=== PATIENT | female | born 1965 | race Caucasian/White ===

== ENCOUNTER → 2018-07-03 12:56 | Day surgery (SDC) | payer BC ==
[~2018-07-03 12:56] MED LIST: Buffered Lidocaine 0.9% SYRIN* 5 ML/SYR SYRINGE INTRADERM ONE; Ketorolac INJ* 30 MG/ML 1 ML VIAL IV PRN; Lidocaine 2% PF * 5 ML VIAL ONE; Midazolam* 1 MG/ML 2 ML VIAL (2 MG) ONE; Morphine VIAL* 10 MG/ML 1 ML VIAL ONE; Naloxone* 0.4 MG/ML 1 ML VIAL IV PRN; Ondansetron INJ* 2 MG/ML VIAL IV PRN; Propofol* 10 MG/ML 20 ML BTL IV PUSH ONE; ceFAZolin 2 GM PREMIX in ORs 2 GM/50 ML BAG IVPB ONE; fentaNYL* 50 MCG/ML 2 ML VIAL (100 MCG VIAL) IV PRN; fentaNYL* 50 MCG/ML 2 ML VIAL (100 MCG VIAL) ONE
--- NOTE | 2018-07-03 15:36 | RAD ---
CPT II Codes: G9500 INDICATION: PowerPort placement. Fluoroscopic services provided for referring physician. 17.6 seconds of fluoroscopy time was used. Single spot image demonstrates PowerPort in place with tip in superior vena cava. IMPRESSION: PowerPort in place. Fluoroscopic services provided for referring physician.
--- NOTE | 2018-07-03 15:51 | RAD ---
Indication: Breast carcinoma. Power port placement. Comparison: June 24, 2018 PET/CT and July 03, 2018 fluoroscopic spot image. Technique: Upright AP 1544 hours Report: Tip of RIGHT chest port is at the level of the RIGHT atrium. Negative for pneumothorax or pleural effusions. Clear lungs. The heart, pulmonary vasculature, and mediastinal contours are unremarkable. LEFT breast tissue varnish maker helper noted. IMPRESSION: #. Negative for pneumothorax post RIGHT chest port placement.
[2018-07-03 16:03] VITALS: BP 142/84
--- NOTE | 2018-07-04 07:53 | OP ---
CC: Eleni Zhao MD; Mauro Zuleta MD * DATE OF OPERATION: 07/03/18 - [facility] DATE OF : 67 SURGEON: Carlin Carrasco MD. SENIOR PROCUREMENT SPECIALIST: None. ANESTHESIOLOGIST: Dr. Cerda. ANESTHESIA: Local MAC. PRE-OP DIAGNOSIS: Left breast carcinoma. POST-OP DIAGNOSIS: Left breast carcinoma. OPERATIVE PROCEDURE: Placement of tunneled central venous catheter with port. ESTIMATED BLOOD LOSS: Minimal. IV FLUIDS: Crystalloid. SPECIMENS: None. DRAINS: None. COMPLICATIONS: None. COUNTS: Instrument, needle, sponge counts correct. DESCRIPTION OF PROCEDURE: The patient was brought to the operating room and placed on the table supine. Sequential compression devices were placed on both lower extremities. Intravenous sedation was administered. She was prepped and draped in sterile fashion and a time-out was performed. Local anesthetic was infiltrated into the skin and soft tissue for a right subclavian approach. The right subclavian vein was accessed on first pass with the needle and the guidewire was positioned in the superior vena cava and confirmed with fluoroscopy. Additional anesthetic was infiltrated for the subcutaneous pocket in the right upper chest. The skin was incised with a scalpel. The subcutaneous tissues were divided with cautery and a pocket was created. An 8-Belgian PowerPort catheter was back tunneled from the counter incision made at the guidewire site to the area of the pocket. The peel-away sheath and dilator were then advanced over the guidewire into the superior vena cava under fluoroscopy. The dilator and wire were removed and the catheter was advanced into the superior vena cava with the tip positioned at the atriocaval junction. The catheter was then cut to an appropriate length and connected to the PowerPort, which was accessed and it jael and flushed easily. The port was placed into the pocket, and secured with a single 2-0 Prolene suture. The pocket was closed in two layers with 3-0 Vicryl for the subcutaneous tissue, 5-0 Vicryl for the skin. The port was again accessed and flushed with heparinized saline. Steri-Strips and Tegaderm dressings were applied. The patient tolerated this well and was transferred to Recovery in stable condition. [id number]/[facility] #: [id number] [facility]
== END | disposition home or self-care (01) ==
LOC: OR 12:56
PROVIDERS: ATTEND Surgery
DX: C50.912 Malignant neoplasm of unspecified site of left female breast (principal); Z68.29 Body mass index [BMI] 29.0-29.9, adult
CPT/HCPCS: 71045; 76000; C1788; J0690; J1642; J2250; J2270; J2704; J3010

== ENCOUNTER 2019-10-07 12:10 | Emergency (ER) | payer BC ==
--- OUTSIDE RECORDS SUMMARY | 2019-10-07 12:19 | XMS REPORT | Summary of Care ---
:1965 Author Organization [facility] Address [address] [place] [address] Care Team Providers Name Role Phone Eleni Zhao Primary Care Provider Reason for Visit Reason Comments Surgical Followup Encounter Details Date Type Department Care Team Description 09/13/2019 Office Visit [facility] Yesy Reeves, Follow-up examination Surgery PA-C following [address] (Primary [address]x) [place] [phone] [place] [address] Allergies No Known Allergiesdocumented as of this encounter (statuses as of 09/13/2019) Medications Medication Sig Dispensed Refills Start Date End Date Status fexofenadine (ALEX) Take 1 Tab by 30 0 01/06/2008 Active 180 mg Oral mouth DAILY. TabIndications: Allergic rhinitis, cause unspecified Vitamin D, Take by mouth. 0 Active Ergocalciferol, 2000 units Oral Cap Tamoxifen Citrate 20 Take by mouth 0 Active MG Oral Tab DAILY. OXYcodone-acetaminophe Take 1 Tab by 20 Tab 0 09/07/2019 Active n (PERCOCET) 5-325 MG mouth EVERY Oral Tab EIGHT HOURS NEEDED (pain). Max Daily Amount: 3 Tabs. Clindamycin HCl 300 MG Take 2 Caps by 42 Cap 0 09/07/2019 09/14/2019 Active Oral Cap mouth THREE TIMES DAILY WITH MEALS for 7 days. 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 Andreia Azevedo Primary Care Provider: Katarzyna Schwarz Oncologist: Initial Evaluation: 08/17/2014 Colonoscopy - One 15 mm polyp at the hepatic flexure - tattooed. Pathology: Hyperplastic One 15 mm polyp in the transverse colon. Pathology: Hyperplastic One 7 mm polyp in the sigmoid colon. Pathology: Harmatoma Partially obstructing recto-sigmoid mass. Pathology: Tubulovillous adenoma w/ high-grade dysplasia 08/23/2014 CT scan (chest/abd/pelvis) - Intraluminal polyp measuring 2.7 cm located w/i the rectosigmoid colon No evidence of metastatic disease in the chest/abd/pelvis Lab Results Lab Results Value Date/Time CEA 0.8 08/23/2014 1031 08/31/2014 Repeat colonoscopy - One 12 mm polyp in the ascending colon. Pathology: sessile serrated polyp (serrated adenoma), negative for dysplasia. One 10 mm polyp in the descending colon - tattooed. Pathology: sessile serrated polyp (serrated adenoma), negative for dysplasia. Partially obstructing tumor in the sigmoid colon. Removal was not done. Injected. Neoadjuvant Therapy: Not indicated Chemo: Radiation: 09/02/2014 Surgical Management: Robotic sigmoidectomy, LAR, incidental appendectomy Pathology: Rectum:Pedunculated TVA with foci of moderate to severe epithelial dysplasia. Sigmoid: hyperplastic polyp Appendix: no abnomalities noted Lymph node status: 0/17 containing metastatic disease Margins: clear of neoplasm Complications: Adjuvant Therapy: Multidisciplinary Colorectal Conference: 09/12/2014 Repeat colonoscopy in one year Follow -up evaluation: 09/06/2015 Colonoscopy - Internal hemorrhoids. Transverse colon polyp measuring 7 mm Pathology: hyperplastic Anastomosis polyp measuring 20 mm Pathology: edematous mucosa - [facility] Polypoid mass measuring 3 cm located at the anastomosis (20 cm from anal verge ) Pathology:TVA w/o dysplasia 06/27/16 - Colonoscopy - 2 tubulovillous adenoma - 9 and 14 mm Sprain of thoracic region 05/07/2013 Sprain of neck 05/07/2013 SEASONAL ALLERGIES- SPRING 01/05/2008 documented as of this encounter (statuses as of 09/13/2019) Resolved Problems Problem Noted Date Resolved Date Colon cancer 08/17/2014 08/23/2014 Overview: Initial Presentation: Rectal bleeding, Change in bowel habits Referring Provider: Dr. Andreia Azevedo Primary Care Provider: Reymundo Boyd Oncologist: Initial Evaluation: 08/17/2014 Colonoscopy - Hepatic flexure polyp measuring 1.5 cm (carpet-like). Tattooed Pathology: pending Transverse polyp measuring 1.5 cm. Pathology: pending Sigmoid colon polyp measuring 7 mm. Pathology: pending Rectosigmoid mass measuring 2.1 cm - partially obstructing. Pathology: pending CT scan (chest/abd/pelvis) - pending PET scan - CEA: pending Neoadjuvant Therapy: Chemo: Radiation: Surgical Management: Pathology: Lymph node status: Margins: Complications: Adjuvant Therapy: Multidisciplinary Colorectal Conference: Follow -up evaluation: Three month follow -up: CEA: Six month follow-up: CEA: 12 month follow-up: Surveillance colonoscopy - CT scan - CEA: documented as of this encounter (statuses as of 09/13/2019) Immunizations Name Administration Dates Next Due TDAP Vaccine 10/23/2016 documented as of this encounter Social History Tobacco Use Types Packs/Day Years Used Date Never Smoker Smokeless Tobacco: Never Used Alcohol Use Drinks/Week oz/Week Comments Yes moderate Sex Assigned at Date Recorded Not on file Job Start Date Occupation Industry Not on file Not on file Not on file Travel History Travel Start Travel End No recent travel history available. documented as of this encounter Last Filed Vital Signs Not on filedocumented in this encounter Progress Notes Yesy Reeves PA-C - 09/13/2019 2:00 PM ESTMrsBakari Rocha presents with her today postop day 6 from left breast tissue barometers calibrator exchange for silicone implants and right breast reduction for symmetry as well as bilateral fat grafting. She denies any sweats, nausea, vomiting, diarrhea, shortness of breath, claudication since surgery.She states she has been having some chills and low- grade fevers. The highest fever was 101.3 Fahrenheit. Today temperature is 99.0 F. She is taking her antibiotics as recommended and having minimal pain after surgery. She is having some tightness secondary to the surgical bra around the lower band of the bra. Evaluation of abdomen and breast showing minimal ecchymosis of the lower abdomen following fat transfer. Right breast having some ecchymosis and minimal edema with no signs of tissue breakdown. Left breast has some erythema surrounding incision site and this is likely secondary to the amount of workthat was required in this area as well as lowering the IMF and history of radiation to the site. Minimal edema of left breast. Dr. Gan came in to evaluate the patient as well. He demarcated the area of erythema on the left IMF with marker and also demarcated areas on the skin of when to call and when to just come in. Encourage patient to do no heavy lifting or strenuous activity. Try to avoid public places for an additional week. Continue antibiotic as recommended. If you have any questions or concerns do not hesitate to make a sooner follow-up visit with myself. New surgical bra was given to patient with a larger size. If she would like to find a better fitting support bra with no underwire that would be okay with us. Okay to shower and gently wash all incisions with soap and fingers rinse then pat dry then apply dry gauze and abdominal binder back on. Please do not hesitate to call with any questions or concerns. Some supplies were given at today's visit. Follow-up Friday. Ernst Duvaltronically signed by Yesy Reeves PA-C at 09/13/2019 3:29 PM ESTdocumented in this encounter Plan of Treatment Date Type Specialty Care Team Description 09/17/2019 Office Visit Plastic Surgery Yesy Reeves PA-C [address] [place] [address] Health Maintenance Due Date Last Done Comments DEPRESSION SCREENING 1978 ZOSTER IMMUNIZATION SERIES 2016 (1 of 2) Colonoscopy 06/27/2017 06/27/2016, 05/23/2016 (Postponed), 03/27/2016, Additional history exists PAP SMEAR 07/13/2017 07/13/2014, 07/13/2014, 11/22/2004 MAMMOGRAM (SCREENING) 04/20/2019 04/20/2018, 04/06/2018, 09/26/2014, Additional history exists INFLUENZA VACCINE (#1) 2019 DIABETES SCREENING 05/18/2019 05/18/2018, 10/23/2016, 09/04/2014, Additional history exists LIPID DISORDER SCREENING 07/13/2019 07/13/2014 DTaP/Tdap/Td Vaccines (2 - 10/23/2026 10/23/2016 Tdap) HEPATITIS A IMMUNIZATION Aged Out No longer eligible SERIES based on patient's age to complete this topic HPV IMMUNIZATION SERIES Aged Out No longer eligible based on patient's age to complete this topic MENINGOCOCCAL VACCINE IMM Aged Out No longer eligible based on patient's age to complete this topic PNEUMOCOCCAL 0-64 YRS Aged Out No longer eligible based on patient's age to complete this topic documented as of this encounter Implants Implanted Type Area Fairground Operator Device Shelf Model / Identifier Expiration Date Serial / Lot Alloderm, 8x16 Rtu Thick - [id number] Left: LIFECE [id number] 12/05/2019 [id number] / Implanted: Qty: 1 on 06/05/2018 by Tyshawn Gan DO at [facility] Breast / [id number] Natrella Inspira Breast Implant Left: Allergan 04/23/2024 [id number] / Implanted: Qty: 1 on 09/07/2019 at [facility] Breast [id number] / [id number] Natrelle Inspira Breast Implant Right: Allergan 05/23/2024 SRL-200 / Implanted: Qty: 1 on 09/07/2019 at [facility] Breast [id number] / [id number] documented as of this encounter Results Not on filedocumented in this encounter Visit Diagnoses Diagnosis Follow-up examination following surgery Follow-up examination, following unspecified surgery documented in this encounter Guarantor Name Account Type Relation to Date of Phone Billing Patient Address Anitha Rocha Personal/Family 1965 [address] ([address]) [address] [phone] [place], [place] (Work) [address] documented as of this encounter
--- OUTSIDE RECORDS SUMMARY | 2019-10-07 12:19 | XMS REPORT | Summary of Care ---
:1965 Author Organization [facility] Address [address] [facility] [place] [address] Care Team Providers Name Role Phone Eleni Zhao Primary Care Provider Reason for Visit Reason Comments Surgical Followup 53 yr old female presents today for 2 week recheck, s/p revision left reconstructed breast with exchange of tissue computer systems security analyst for permanent silicone implant,capsulotomy and capsulorrhaphy left reconstructed breast, right symmetrizing breast lift with placement of implant,scar revision bilateral breasts, autologous fat grafting bilateral breasts 09/07/19 Wound Check left breast Encounter Details Date Type Department Care Team Description 10/06/2019 Office Visit [facility] Yesy Reeves, Follow-up examination Surgery PA-C following [address] (Primary [address]x) [place] [phone] [place] [address] Allergies No Known Allergiesdocumented as of this encounter (statuses as of 10/06/2019) Medications Medication Sig Dispensed Refills Start Date End Date Status fexofenadine (ALEX) Take 1 Tab by 30 0 01/06/2008 Active 180 mg Oral mouth DAILY. TabIndications: Allergic rhinitis, cause unspecified Vitamin D, Take by mouth. 0 Active Ergocalciferol, 2000 units Oral Cap Tamoxifen Citrate 20 MG Take by mouth 0 Active Oral Tab DAILY. 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 Kali Randall) Polypoid mass measuring 3 cm located at the anastomosis (20 cm from anal verge ) Pathology:TVA w/o dysplasia 06/27/16 - Colonoscopy - 2 tubulovillous adenoma - 9 and 14 mm Sprain of thoracic region 05/07/2013 Sprain of neck 05/07/2013 SEASONAL ALLERGIES- SPRING 01/05/2008 documented as of this encounter (statuses as of 10/06/2019) Resolved Problems Problem Noted Date Resolved Date [...] as of this encounter (statuses as of 10/06/2019) Immunizations Name Administration Dates Next Due TDAP [...] encounter Progress Notes Yesy Reeves PA-C - 10/06/2019 3:40 PM ESTMs. Rocha presents with her today 4 weeks status post left breast revision reconstruction with implant exchange and right breast reduction for symmetry as well as bilateral fat grafting in the OR with Dr. Gan. She denies any difficulty with the healing process. Patient states that the left lower IMF is improving. She has started walking again and is feeling well. She is interested inabdominoplasty or laser liposuction in the future and if she chooses to pursue that she should make a follow-up visit for cosmetic consultation with Dr. Gan. She is not yet considered if she would like to do 3D nipple reconstruction or 3D nipple tattoo. If she would like 3D nipple tattoo she should call and make that follow -up visit I will fill out the procedure sheet. Please do not hesitate to call with any questions or concerns. Encouraging left breast massage. Wash her left breast daily with a soapy washcloth rinse and pat dry then apply thin sheen of bacitracin ointment and a dry gauze. If she notes any drainage from the site she should call for a sooner follow-up visit. Wear good support bra at all times unless showering. Slowly reintroduce previous activities. If you notice any increase in redness, swelling, pain ofthe left breast please do not hesitate to give us a call. Ernst Duvaltronically signed by Yesy Reeves PA-C at 10/06/2019 4:06 PM ESTdocumented in this encounter Plan of Treatment Health Maintenance Due Date Last Done Comments [...] of this encounter Implants Implanted Type Area Live In Housekeeper Device Shelf Model / Identifier Expiration Date Serial / Lot Eliza, 8x16 Rtu Thick - [id number] Left: LIFECE [id number] 12/05/2019 [id number] / Implanted: Qty: 1 on 06/05/2018 by Tyshawn Gan DO at [facility] Breast / [id number] Natrella Inspira Breast Implant Left: Allergan 04/23/2024 SRF-605 / Implanted: Qty: 1 on 09/07/2019 at [facility] Breast [id number] / [id number] Natrelle Inspira Breast Implant Right: Allergan 05/23/2024 SRL-200 / Implanted: Qty: 1 on 09/07/2019 at [facility] Breast [id number] / [id number] documented as of this encounter Results Not on filedocumented in this encounter Visit Diagnoses Diagnosis Follow-up examination following surgery Follow-up examination, following unspecified surgery documented in this encounter (Home) [address] [phone] [place], [place] (Work) [address] documented as of this encounter
--- OUTSIDE RECORDS SUMMARY | 2019-10-07 12:19 | XMS REPORT | Summary of Care ---
:1965 Author Organization [facility] Address [address] [facility] [place] [address] Care Team Providers Name Role Phone Eleni Zaho Primary Care Provider Reason for Visit Reason Comments Surgical Followup 53 yr old female presents today for 4 day recheck, s/p 1 revision left reconstructed breast with exchange of tissue instructional services specialist for permanent silicone implant #2 capsulotomy and capsulorrhaphy left reconstructed breast #3 right symmetrizing breast lift with placement of implant #4 scar revision bilateral breasts #5 autologous fat grafting bilateral breasts 09/07/19 Breast Problem recheck sparkle breasts Encounter Details Date Type Department Care Team Description 09/17/2019 Office Visit [facility], Follow-up examination Surgery PA-C following [address] (Primary [address]x) [place] [address] [place] [address] Allergies No Known Allergiesdocumented as of this encounter (statuses as of 09/17/2019) Medications Medication Sig Dispensed Refills Start Date End Date Status fexofenadine Take 1 Tab 30 0 01/06/2008 Active (ALEX) 180 mg by mouth Oral DAILY. TabIndications: Allergic rhinitis, cause unspecified Vitamin D, Take by 0 Active Ergocalciferol, mouth. 2000 units Oral Cap Tamoxifen Citrate Take by 0 Active 20 MG Oral Tab mouth DAILY. OXYcodone-acetamin Take 1 Tab 20 Tab 0 09/07/2019 01/17/202 Discontinued ophen (PERCOCET) by mouth 0 (Therapy 5-325 MG Oral Tab EVERY EIGHT Completed) HOURS NEEDED (pain). Max Daily Amount: 3 Tabs. 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 Kali Randall) Polypoid mass measuring 3 cm located at the anastomosis (20 cm from anal verge ) Pathology:TVA w/o dysplasia 06/27/16 - Colonoscopy - 2 tubulovillous adenoma - 9 and 14 mm Sprain of thoracic region 05/07/2013 Sprain of neck 05/07/2013 SEASONAL ALLERGIES- SPRING 01/05/2008 documented as of this encounter (statuses as of 09/17/2019) Resolved Problems Problem Noted Date Resolved Date [...] as of this encounter (statuses as of 09/17/2019) Immunizations Name Administration Dates Next Due TDAP [...] of this encounter Last Filed Vital Signs Vital Sign Reading Time Taken Comments Blood Pressure - - Pulse - - Temperature 37.2 09/17/2019 2:48 PM EST C (98.9 F) Respiratory Rate - - Oxygen Saturation - - Inhaled Oxygen Concentration - - Weight - - Height - - Body Mass Index - - documented in this encounter Progress Notes Yesy Reeves PA-C - 09/17/2019 3:00 PM ESTMrsBakari Rocha presents with her today postop day 10 from left breast tissue instructional services specialist exchange for silicone implants and right breast reduction for symmetry as well as bilateral fat grafting. She states she is feeling significantly better since last visit. She has not noted any fevers. Shehas no pain on the right and no occasional discomfort on the lower left side. She feels as though her abdomen is less swollen as well. She states that the left side discomfort is improved significantly. She stopped using the surgical bra and started using a larger bra that sheremoved with the underwire from. Right breast with residual edema and ecchymosis which is improving since last visit. Left breast erythema is decreasing and there is more softness to the skin. You see wrinkling of the skin on the left side. Incision site has a small area of what appears to be superficial necrosis. I encouraged the patient to wear good supportive bra at all times. No heavy lifting or strenuous activity. Follow-up in approximately 1 week at a time when Dr. Aguirre is available. If she notes a sudden gush of fluid on either side of the reduction or reconstruction to keep it clean and apply a dry gauze and to call for sooner follow-up. Please do not hesitate to call with any questions or concerns or if you note any increase in redness, swelling, pain, drainage. Leaving all princess and sutures in place until next visit. Suture trimmed at umbilicus. Ernst Duvaltronically signed by Yesy Reeves PA-C at 09/17/2019 4:01 PM ESTdocumented in this encounter Plan of Treatment Date Type Specialty Care Team Description 09/22/2019 Office Visit Plastic Surgery Yesy Reeves PA-C [...] of this encounter Implants Implanted Type Area Phlebotomist Prn Device Shelf Model / Identifier Expiration Date Serial / Lot Alloderm, 8x16 Rtu Thick - [id number] Left: LIFECE [id number] 12/05/2019 [id number] / Implanted: Qty: 1 on 06/05/2018 by Tyshawn Gan DO at [facility] Breast / [id number] Natrella Inspira Breast Implant Left: Allergan 04/23/2024 SRF-605 / Implanted: Qty: 1 on 09/07/2019 at [facility] Breast [id number] / [id number] Natrelle Inspira Breast Implant Right: Allergan 05/23/2024 SRL-200 / Implanted: Qty: 1 on 09/07/2019 at [facility] Breast [id number] / [id number] documented as of this encounter Results Not on filedocumented in this encounter Visit Diagnoses Diagnosis Follow-up examination following surgery Follow-up examination, following unspecified surgery documented in this encounter (Home) [address] [phone] [place], [place] (Work) [address] documented as of this encounter
--- OUTSIDE RECORDS SUMMARY | 2019-10-07 12:19 | XMS REPORT | Summary of Care ---
:1965 Author Organization [facility] Address [address] [place] [address] Care Team Providers Name Role Phone Eleni Zhao Primary Care Provider Reason for Visit Reason Comments Follow Up Patient is 53 yr old female presents s/p 09/07/19 left licensed physical therapist assistant exchange for silicone implant. Patient has no complaints today Encounter Details Date Type Department Care Team Description 09/22/2019 Office Visit [facility] Yesy Reeves, Follow-up examination Surgery PA-C following surgery [address] (Primary Dx) [place] [id number] [place] [address] Allergies No Known Allergiesdocumented as of this encounter (statuses as of 09/22/2019) Medications Medication Sig Dispensed Refills Start Date End Date Status fexofenadine (ALEX) Take 1 Tab by 30 0 01/06/2008 Active 180 mg Oral mouth DAILY. TabIndications: Allergic rhinitis, cause unspecified Vitamin D, Take by mouth. 0 Active Ergocalciferol, 2000 units Oral Cap Tamoxifen Citrate 20 MG Take by mouth 0 Active Oral Tab DAILY. 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 (Dr. Kali Randall) Polypoid mass measuring 3 cm located at the anastomosis (20 cm from anal verge ) Pathology:TVA w/o dysplasia 06/27/16 - Colonoscopy - 2 tubulovillous adenoma - 9 and 14 mm Sprain of thoracic region 05/07/2013 Sprain of neck 05/07/2013 SEASONAL ALLERGIES- SPRING 01/05/2008 documented as of this encounter (statuses as of 09/22/2019) Resolved Problems Problem Noted Date Resolved Date [...] as of this encounter (statuses as of 09/22/2019) Immunizations Name Administration Dates Next Due TDAP [...] Pressure - - Pulse - - Temperature - - Respiratory Rate - - Oxygen Saturation - - Inhaled Oxygen Concentration - - Weight 79.4 kg (175 lb) 09/22/2019 3:18 PM EST Height 160 cm (5' 3") 09/22/2019 3:18 PM EST Body Mass Index 31 09/22/2019 3:18 PM EST documented in this encounter Progress Notes Yesy Reeves PA-C - 09/22/2019 3:30 PM ESTMs. Rocha presents with her daughter today for a two-week follow-up from right breast reduction for symmetry and left breast tissue licensed physical therapist assistant exchange for implants as well as fat grafting. She is pleased with the results thus far. Patient states she went down 2 pant sizes. She denies any fevers, chills, sweats. States she continues to feel a bit foggy mentally and would like to start going out more. Right breast is healing beautifully. Left breast continues to be slightly edematous with some hyperemia however does not appear infected. Left IMF has some tissue necrosis just along the incision line located in the medial aspect. Dr. Gan came in to evaluate the patient as well. He is very pleased with the results. Recommending to remove remaining sutures and princess from right breast. Trim left IMF's suture. No heavy lifting or strenuous activity. Is okay to go out and do some light walking. Follow-up in 9 to 10 days to recheck. If you know any increase in redness, swelling, pain please donot hesitate to give us a call. Wear good support bra at all times unless showering. Dry gauze to left IMF. Yesy Reeves PA-C documented in this encounter Plan of Treatment Date Type Specialty Care Team Description 10/06/2019 Office Visit Plastic Surgery Yesy Reeves PA-C [...] of this encounter Implants Implanted Type Area Business Applications Analyst Device Shelf Model / Identifier Expiration Date Serial / Lot Eliza, 8x16 Rtu Thick - [id number] Left: LIFECE [id number] 12/05/2019 [id number] / Implanted: Qty: 1 on 06/05/2018 by Tyshawn Gan DO at [facility] Breast / [id number] Natrella Inspira Breast Implant Left: Allergan 04/23/2024 [id number] / Implanted: Qty: 1 on 09/07/2019 at [facility] Breast [id number] / [id number] Natrelle Inspira Breast Implant Right: Allergan 05/23/2024 SRL-200 / Implanted: Qty: 1 on 09/07/2019 at [facility] Breast [id number] / [id number] documented as of this encounter Results Not on filedocumented in this encounter Visit Diagnoses Diagnosis Follow-up examination following surgery Follow-up examination, following unspecified surgery documented in this encounter (Home) [address] [phone] [place], [place] (Work) [id number] documented as of this encounter
--- OUTSIDE RECORDS SUMMARY | 2019-10-07 12:20 | XMS REPORT | Summary of Care ---
:1965 Author Organization [facility] Address [address] [place] [address] Care Team Providers Name Role Phone Eleni Zhao Primary Care Provider Reason for Visit Auth/Cert Status Reason Specialty Diagnoses / Procedures Referred By Contact Referred To Contact Diagnoses Personal history of malignant neoplasm of breast Procedures IA REVISE BREAST RECONSTRUCTION IA REMV TISSUE FOR GRAFT OTHR IA [id number] GRAFT IA REMV TISSUE FOR GRAFT OTHR IA DELAY BREAST PROS AFTER BREAST SURG IA ENLARGE BREAST WITH IMPLANT IA REDUCTION OF LARGE BREAST IA IMPLNT BIO IMPLNT FOR SOFT TISSUE REINFORCEMENT IA REMOVAL OF IMPLANT MATERIAL left home improvement advisor exchange for silicone implant, alloderm pocket, PORSPER drains. right reduction with silicone implant and b/l fat grafting FAT GRAFTING Encounter Details Date Type Department Care Team Description 09/07/2019 Hospital Encounter [facility] RECOVERY Tyshawn Gan Short Procedure [address], [place] [address] [address] [phone] [place] [address] [phone] Allergies No Known Allergiesdocumented as of this encounter (statuses as of 09/08/2019) Medications Medication Sig Dispensed Refills Start Date [...] as of this encounter (statuses as of 09/08/2019) Active Problems Problem Noted Date Personal history of breast cancer 08/27/2019 Personal history of malignant neoplasm of breast 08/27/2019 Overview: Added automatically from request for surgery [id number] Carcinoma of overlapping sites of left breast in female, estrogen receptor positive Overview: Added automatically from request for surgery [id number] 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 Kali Randall) Polypoid mass measuring 3 cm located at the anastomosis (20 cm from anal verge ) Pathology:TVA w/o dysplasia 06/27/16 - Colonoscopy - 2 tubulovillous adenoma - 9 and 14 mm Sprain of thoracic region 05/07/2013 Sprain of neck 05/07/2013 SEASONAL ALLERGIES- SPRING 01/05/2008 documented as of this encounter (statuses as of 09/08/2019) Resolved Problems Problem Noted Date Resolved Date [...] as of this encounter (statuses as of 09/08/2019) Immunizations Name Administration Dates Next Due TDAP [...] Sign Reading Time Taken Comments Blood Pressure 132/79 09/07/2019 1:00 PM EST Pulse 102 09/07/2019 1:05 PM EST Temperature 36.7 09/07/2019 1:00 PM EST C (98 F) Respiratory Rate 15 09/07/2019 1:05 PM EST Oxygen Saturation 96% 09/07/2019 1:05 PM EST Inhaled Oxygen Concentration - - Weight 80.6 kg (177 lb 9.6 oz) 09/07/2019 6:50 AM EST Height 160 cm (5' 3") 09/07/2019 6:50 AM EST Body Mass Index 31.46 09/07/2019 6:50 AM EST documented in this encounter Discharge Summaries Tyshawn Gan DO - 09/07/2019 11:31 AM ESTGUTHRIE SP/OP DISCHARGE NOTE [place] [address] PATIENT: Anitha Rocha SURGEON: Primary: Tyshawn Gan DO ASSISTING: Yesy Reeves PA-C : 1965 DATE OF SURGERY: 09/07/2019 Procedure: Revision left breast reconstruction, left breast home improvement advisor exchange for silicone implant and capsulorraphy, right breast augmentation with mastopexy for symmetry, bilateral breast fat grafting Principle Diagnosis: history of left breast cancer Associated Condition(s): Same as pre-op, unless otherwise indicated Mental Status: Same as pre-op, unless otherwise indicated. Condition: Stable, unless otherwise indicated Disposition of Care: Discharge to home. Appointment with/ or Follow-up with Yesy Reeves PA-C one week. No orders of the defined types were placed in this encounter. Author: Yesy Reeves PA-C 09/07/2019 documented in this encounter Discharge Instructions Ravinrda Smith RN - 09/07/2019Provider's Instructions Reason for Admission or Diagnosis:Personal history of malignant neoplasm of breast Activity/Restrictions: ambulate in house, no lifting > 10 lbs for 4 weeks, no driving or strenuous exercise until cleared by physician at post operative appointment, no driving for 2 weeks and no driving while on analgesics Skin/Wound Care: Ice to abdomen for comfort 20min on/off (do not fall asleep with Ice pack on abdomen) and no shower, sponge bathe only for necessities. Discharge Diet: Regular Diet Special Instructions: Take antibiotic with a full glass of water, some food and stay upright for onehour after. Okay to use extra strength tylenol for pain, do not go over 4000 mg of acetaminophen in24 hours. Wait three days before using ibuprofen for pain control. It is normal to see drainage onsurgical dressings, if drainage is running down abdomen or legs then call Plastic surgeon senior electrical controls engineer. If short of breath, difficulty breathing or, significant pain in legs with walking go to local ER. Please call office with any questions or concerns. Discharge Provider: Yesy Reeves PA-C Attending: Tyshawn Gan DO Time: 11:36 Nurse's Instructions Problems to report to your Physician: Excessive pain or discomfort Fever > 100.5 degrees Difficulty breathing Increase or smell in wound drainage Patient Education General Anesthesia Discharge Instructions About this topic You may need general anesthesia if you need to be asleep during a procedure. Your doctor will use drugs to block the signals that go from your nerves to your brain. Doctors give general anesthesia during a surgery or procedure to: Allow you to sleep Help your body be still Relax your muscles Help you to relax and be pain free Keep you from remembering the surgery Let the doctor manage your airway, breathing, and blood flow The doctor or nurse naval police coxswain gives general anesthesia by shot into your vein. Sometimes, you may breathe in a gas through a mask placed over your face. What care is needed at home? Ask your doctor what you need to do when you go home. Make sure you ask questions if you do notunderstand what the doctor says. Your doctor may give you drugs to prevent or treat an upset stomach from the anesthetic. Take them as ordered. If your throat is sore, suck on ice chips or popsicles to ease throat pain. Put 2 to 3 pillows under your head and back when you lie down to help you breathe easier. For the first 24 to 48 hours: ? Do not operate heavy or dangerous machinery. ? Do not make major decisions or sign important papers. You may not be able to think clearly. ? Avoid beer, wine, or mixed drinks. What follow-up care is needed? Your doctor may ask you to come back to the office to check on your progress. Be sure to keep these visits. If you have stitches that do not dissolve or princess, you will need to have them removed. Your doctor will want to do this in 1 to 2 weeks. If the doctor used skin glue, the glue will fall off on its own. What drugs may be needed? The doctor may order drugs to: Help with pain Treat an upset stomach or throwing up Will physical activity be limited? You will not be allowed to drive right away after the procedure. Ask a family member or a friend to drive you home. Avoid trying to get out of bed without help until you are sure of your balance. You may have to limit your activity. Talk to your doctor about if you need to limit how much you lift or limit exercise after your procedure. What changes to diet are needed? Start with a light diet when you are fully awake. This includes things that are easy to swallow likesoups, pudding, jello, toast, and eggs. Slowly progress to your normal diet. What problems could happen? Low blood pressure Breathing problems Upset stomach or throwing up Dizziness When do I need to call the doctor? Trouble breathing Upset stomach or throwing up more than 3 times in the next 2 days Dizziness documented in this encounter Plan of Treatment Date Type Specialty Care Team Description 09/13/2019 Office Visit Plastic Surgery Yesy Reeves PA-C [address] [place] [address] [phone] Health Maintenance Due Date Last Done Comments [...] of this encounter Implants Implanted Type Area Reciprocating Drill Operator Device Shelf Model / Identifier Expiration Date Serial / Lot Alloderm, 8x16 Rtu Thick - [id number] Left: LIFECE [id number] 12/05/2019 [id number] / Implanted: Qty: 1 on 06/05/2018 by Tyshawn Gan DO at [facility] Breast / [id number] Natrella Inspira Breast Implant Left: 04/23/2024 SRF-[id number] / Implanted: Qty: 1 on 09/07/2019 at [facility] Breast [id number] / [id number] Natrelle Inspira Breast Implant Right: 05/23/2024 SRL-200 / Implanted: Qty: 1 on 09/07/2019 at [facility] Breast [id number] / [id number] Explanted Type Area Reciprocating Drill Operator Device Shelf Model / Identifier Expiration Date Serial / Lot Tissue Windows Systems Architect Left: 01/24/2022 [id number] / Implanted: Qty: 1 on 06/05/2018 by Tyshawn Gan DO at [facility] Breast [id number] / Explanted: Qty: 1 on 09/07/2019 at [facility] documented as of this encounter Procedures Procedure Name Priority Date/Time Associated Comments Diagnosis SIGN PERMIT 09/07/2019 12:00 PM EST TISSUE EXAM Routine 09/07/2019 8:46 Personal history Results for this AM EST of malignant procedure are in neoplasm of breast the results section. FAT GRAFTING Planned Trip to 09/07/2019 7:38 Personal history OR AM EST of malignant neoplasm of breast Case Notes Special needs: tumescent solution, revolve system, implants and alloderm please REVISION RECONSTRUCTED Planned Trip to OR 09/07/2019 7:38 AM Personal history of BREAST EST malignant neoplasm of breast Case Notes Special needs: tumescent solution, revolve system, implants and alloderm please URINE (POCT) Routine 09/07/2019 7:06 AM EST documented in this encounter Results TISSUE EXAM (09/07/2019 8:46 AM EST) Case Report Surgical Pathology Case: [id number] [facility] Authorizing Provider: Tyshawn Gan DO Collected: 09/07/2019 08:46 AM [facility] Ordering Location: [facility] Preprocedure Received: 09/07/2019 12:19 PM Pathologist: Dylan Leo MD, PhD Specimens: 1) - breast implants/expanders, Left breast tissue home improvement advisor 2) - BREAST RIGHT, Right breast cyst capsule h/o breast cancer 3) - BREAST RIGHT, Right breast skin tissue Pre-Op Diagnosis Z85.3 - Personal [facility] history of malignant [facility] neoplasm of breast [ICD-10-CM] Post-Op Diagnosis Z85.3 - Personal [facility] history of malignant [facility] neoplasm of breast [ICD-10-CM] FINAL DIAGNOSIS 1. Left breast tissue home improvement advisor, removal: [employer] Electronically -Breast home improvement advisor as grossly described. [facility] signed by Dylan Leo MD, PhD on 2. Right breast cyst capsule, excision: 09/08/2019 at 8:45 AM -Unremarkable fibroadipose breast tissue. 3. Right breast skin tissue, excision: -Unremarkable skin and subcutaneous tissue. Microscopic Microscopic [facility] Description examination is [facility] performed. Gross Description 1. The specimen is received in formalin labeled, with the patient's name, MRN, and Left breast tissue home improvement advisor. It consists of a breast implant that measures 14.5 x 14.5 x 5 cm and weighs 509 g. Exami [place] [facility] [place] revealed grossly identifiable inscriptions: Allergan style 133 VX 40 cm 60 cc Lot [id number] but without any gross identifiable puncture/abscess. The specimen is for gross description only. [facility] 2. The specimen is received fresh labeled, with the patient's name, MRN, and Right breast cyst capsule h/o breast cancer. It consists of a yellow-meeks fibroadipose soft tissue fragment that measures 2 x 1.3 x 1 cm and weighing 1 g. The margin is inked black, the specimen is serially sectioned and submitted entirely in cassette 2A. 3. The specimen is received in formalin labeled, with the patient's name, MRN , and Right breast skin tissue. It consists of multiple meeks-white skin fragments and an aggregate measurement of 3.5 x 3 x 1 .5 cm. Examination revealed no gross identifiable lesions. Offline Editor sections are submitted in cassette 3A. MPN Gross description is reviewed before signout by Dylan Leo MD, PhD Disclaimer Gross description is performed at the [facility], [address] [facility] [place] [address]. [facility] All technical components are performed at the [facility], [address] [place] [address] [place] [address]. Specimen Other - breast implants/expanders Tissue specimen (specimen) - Specimen from wound (specimen) Tissue specimen (specimen) - Specimen from wound (specimen) Performing Organization Address [facility] Phone Number [facility] [address] [place] [address] [phone] URINE (POCT) (09/07/2019 7:06 AM EST) Urine Test negative POINT OF CARE (POCT) TESTING Qualitative Urine acceptable POINT OF CARE HCG Internal Control Comment: TESTING (POCT) Performed at: [facility] POCT Michael Carlton MD, Laboratory [employer] [address] [place] [address] Specimen Performing Organization Address [facility] [place] Phone Number POINT OF CARE TESTING documented in this encounter Visit Diagnoses Diagnosis Personal history of malignant neoplasm of breast documented in this encounter Administered Medications Medication Order MAR Action Action Date Dose Rate Site FentaNYL (PF) (SUBLIMAZE) injection (PF) 25 mcg 25 mcg, Intravenous Push, PRU Q5MIN PRN, Starting 09/07/19 at 1116, Until 09/07/19 at 1515, Mild Pain (pain scale 1-3) - IV - 1st line - if immediate effect required or patient cannot tolerate PO, 4 Recovery FentaNYL (PF) (SUBLIMAZE) injection (PF) 50 mcg 50 mcg, Intravenous Push, PRU Q5MIN PRN, Starting 09/07/19 at 1116, Until 09/07/19 at 1544, Moderate Pain (pain scale 4-6) - IV - 1st line - if immediate effect required or patient cannot tolerate PO, Severe Pain (pain scale 7-10) - IV - 1st line - if immediate effect required or patient cannot tolerate PO, 4 Recovery haloperidol (HALDOL) injection 0.65 mg 0.65 mg, Intravenous Push, PRU X1 PRN, 1 dose, Starting 09/07/19 at 1116, Until Tu09/07/19 at 1544, Nausea/Vomiting - IV - 3rd line - if immediate effect required or patient cannot tolerate PO and no relief 1 hour after administration of 2nd line agent, 4 Recovery HYDROmorphone (DILAUDID) syringe 0.3 mg 0.3 mg, Intravenous Push, PRU Q5MIN PRN, Starting e 09/07/19 at 1116, Until Tu09/07/19 at 1515, Mild Pain (pain scale 1-3) IV - 2nd line - if immediate effect required or cannot tolerate PO & still had mild pain 4 hrs after admin of 1st line agent or patient did not tolerate 1st line agent, 4 Recovery HYDROmorphone (DILAUDID) syringe 0.5 mg 0.5 mg, Intravenous Push, PRU Q5MIN PRN, 2 doses, Starting 09/07/19 at 1116, Until Tu09/07/19 at 1544, Moderate Pain (pain scale 4-6)IV 2nd line- if immediate effect required or cannot tolerate PO & still had moderate pain 2 hrs after admin of 1st line agent or did not tolerate 1st line agent, Severe Pain (pain scale 7-10)IV 2nd line - if immediate effect required or cannot tolerate PO & no still has severe pain 1 hr after admin of 1st line agent or did not tolerate 1st line agent, 4 Recovery lactated ringers IV Intravenous, at 100 mL/hr, PRU CONTINUOUS, Starting Fri09/07/19 at 1120, Until Tu09/07/19 at 1544, 4 Recovery, PRU, midazolam (VERSED) injection 0.5 mg 0.5 mg, Intravenous Push, PRU Q5MIN PRN, Starting 09/07/19 at 1116, Until Tu09/07/19 at 1515, Anxiety - IV - 1st line - if immediate effect required or patient cannot tolerate PO, 4 Recovery ondansetron (ZOFRAN) injection 4 mg Given 09/07/2019 12:12 PM EST 4 mg 4 mg, Intravenous Push, PRU X1 PRN, 1 dose, Starting Fri09/07/19 at 1116, Until Fri09/07/19 at 1212, Nausea/Vomiting - IV - 1st line - If immediate effect required or patient cannot tolerate PO, 4 Recovery OXYcodone-acetaminophen (PERCOCET) 5-325 mg 1 Given 09/07/2019 12:52 PM EST 1 Tab Tab 1 Tab, Oral, X1, 1 dose, First dose on Fri09/07/19 at 1230, MAXIMUM 4,000 mg of acetaminophen daily. May take prior to discharge PRN pain., prochlorperazine (COMPAZINE) injection 10 mg Given 09/07/2019 12:31 PM EST 10 mg 10 mg, Intravenous Push, PRU PRN, 2 doses, Starting Fri09/07/19 at 1116, Until Fri09/07/19 at 1544, Nausea/Vomiting - IV - 2nd line - if immediate effect required or patient cannot tolerate PO and no relief 1 hours after administration of 1st line agent, 4 Recovery scopolamine (TRANSDERM SCOP) Patch applied 09/07/2019 7:23 AM EST 1 mg Ear - Right transdermal patch 72 hour 1 mg 1 mg, Transdermal, NOW, 1 dose, Fri09/07/19 at 0720, Actual mg amount of scopolamine displayed on product package reflects total amount in the patch which includes overfill. The patch is designed to deliver 1 mg of scopolamine over 72 hours. Rotate sites. Remove prior to MRI to avoid govea. Please make sure to remove previous patch from site., documented in this encounter Insurance Payer Benefit Plan / Subscriber ID Effective Dates Phone Address Type Group BCBS EMPIRE BCBS EMPIRE PPO xxxxxxxxxxxx 2017-Present [employer] (Home) [address] [phone] [place], [place] (Work) [id number] documented as of this encounter
--- OUTSIDE RECORDS SUMMARY | 2019-10-07 12:20 | XMS REPORT | Summary of Care ---
:1965 Author Organization [facility] Address [address] [facility] [place] [address] Care Team Providers Name Role Phone Eleni Zhao Primary Care Provider Reason for Visit Reason Comments Pre-op Exam Encounter Details Date Type Department Care Team Description 08/27/2019 Office Visit [facility] Yesy Reeves, History of breast Surgery PA-C cancer in female [address] (Primary Dx) [place] [id number] [place] [address] Allergies No Known Allergiesdocumented as of this encounter (statuses as of 08/27/2019) Medications Medication Sig Dispensed Refills Start Date End Date Status fexofenadine (ALEX) Take 1 Tab by 30 0 01/06/2008 Active 180 mg Oral mouth DAILY. TabIndications: Allergic rhinitis, cause unspecified Vitamin D, Take by mouth. 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 Kali Randall) Polypoid mass measuring 3 cm located at the anastomosis (20 cm from anal verge ) Pathology:TVA w/o dysplasia 06/27/16 - Colonoscopy - 2 tubulovillous adenoma - 9 and 14 mm Sprain of thoracic region 05/07/2013 Sprain of neck 05/07/2013 SEASONAL ALLERGIES- SPRING 01/05/2008 documented as of this encounter (statuses as of 08/27/2019) Resolved Problems Problem Noted Date Resolved Date [...] as of this encounter (statuses as of 08/27/2019) Immunizations Name Administration Dates Next Due TDAP [...] - Inhaled Oxygen Concentration - - Weight 80.3 kg (177 lb) 08/27/2019 9:09 AM EST Height 160 cm (5' 3") 08/27/2019 9:09 AM EST Body Mass Index 31.35 08/27/2019 9:09 AM EST documented in this encounter Progress Notes Yesy Reeves PA-C - 08/27/2019 9:00 AM EST PATIENT: Anitha Rocha : 1965 DATE OF SERVICE: 08/27/2019 CHIEF COMPLAINT: Chief Complaint Patient presents with Pre-op Exam Subjective HISTORY OF PRESENT ILLNESS: Anitha Rocha is a 53-y.o. female. HPI Mrs. Rocha presents with her today to discuss revision reconstruction of left breast and symmetrizing reduction of the right. She denies any recurrent fevers, chills, sweats, nausea, vomiting,diarrhea. Denies any significant weight, appetite or, energy level changes. Denies any difficulty with healing in the past. She lives with her and is able to complete her ADLs without assistance. She has family close by. 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 She lives in [place]. Only medication she currently takes is tamoxifen nightly. June 2018 patient underwent left skin sparing mastectomy with immediate reconstruction under pec muscle with tissue spring intern and AlloDerm placement, tissue spring intern 133 [id number]. She had no difficulty with the healing process. Last TE fill was July 12, 2019. Chemotherapy completed October 2018. Radiation completed November 2018. Dr. Soto came in to evaluate the patient as well. He notes trauma to the left lateral aspect of breast. Patient feels as though that she possibly did this in her sleep as she has been sleeping and underwire bras. Left breast base measured at 14 cm. Right breast base measured at 19 cm. Right breast is significantly ptotic and much larger compared to the left. We discussed removal of tissue spring intern on the left and lowering IMF with AlloDerm then placement of full profile 500 to 600 cc implant as well as 2 JPdrains. On the right we discussed reduction mastopexy with placement of moderate profile implant 13cm to help improve symmetry and projection of breast. Bilateral fat grafting. Past Medical History: Diagnosis Date Abnormal mammogram Anesthesia Hx of nausea and vomiting after sedation even with IV&PO zofran Breast disorder Cancer (HCC) Carcinoma of overlapping sites of left breast in female, estrogen receptor positive (HCC) 05/18/2018 Dysplastic colon polyp 09/02/2014 s/p Robotic sigmoidectomy 09/2014 - TVA w/ severe dysplasia SEASONAL ALLERGIES- SPRING 01/05/2008 Skin cancer Family History Problem Relation Age of Onset Diabetes Mother Cancer Mother LUNG CANCER Heart Father Hypertension Father Cancer Maternal Aunt breast, lung Breast Cancer Maternal Aunt 50's Cancer Maternal Uncle throat Prostate Cancer Maternal Grandfather Current Outpatient Medications Medication Sig fexofenadine (ALEX) 180 mg Oral Tab Take 1 Tab by mouth DAILY. Vitamin D, Ergocalciferol, 2000 units Oral Cap Take by mouth. No current facility-administered medications for this visit. No Known Allergies Social History Socioeconomic History Marital status: Spouse name: Not on file Number of children: Not on file Years of education: Not on file Highest education level: Not on file Occupational History Not on file Social Needs Financial resource strain: Not on file Food insecurity Worry: Not on file Inability: Not on file Transportation needs Medical: Not on file Non-medical: Not on file Tobacco Use Smoking status: Never Smoker Smokeless tobacco: Never Used Substance and Sexual Activity Alcohol use: Yes Comment: moderate Drug use: No Sexual activity: Yes Partners: Male control/protection: Surgical, Lifestyle Physical activity Days per week: Not on file Minutes per session: Not on file Stress: Not on file Relationships Social connections Talks on phone: Not on file Gets together: Not on file Attends baptist service: Not on file Active member of club or organization: Not on file Attends meetings of clubs or organizations: Not on file Relationship status: Not on file Intimate partner violence Fear of current or ex partner: Not on file Emotionally abused: Not on file Physically abused: Not on file Forced sexual activity: Not on file Other Topics Concern Not on file Social History Narrative [place] Lives with , youngest child still at home REVIEW OF SYSTEMS: Review of Systems All other systems reviewed and are negative. Objective PHYSICAL EXAM: VITALS: Ht 5' 3" (1.6 m) | Wt 177 lb (80.3 kg) | BMI 31.35 kg/m Body mass index is 31.35 kg/m. Physical Exam Constitutional: Appearance: Normal appearance. HENT: Head: Normocephalic and atraumatic. Nose: No congestion or rhinorrhea. Eyes: General: Right eye: No discharge. Left eye: No discharge. Neck: Musculoskeletal: Neck supple. Pulmonary: Effort: Pulmonary effort is normal. No respiratory distress. Abdominal: Palpations: Abdomen is soft. Musculoskeletal: Right lower leg: No edema. Left lower leg: No edema. Skin: General: Skin is warm and dry. Neurological: General: No focal deficit present. Mental Status: She is alert and oriented to person, place, and time. Psychiatric: Mood and Affect: Mood normal. Behavior: Behavior normal. Thought Content: Thought content normal. Judgment: Judgment normal. ASSESSMENT / IMPRESSION: ICD-9-CM ICD-10-CM 1. History of breast cancer in female V10.3 Z85.3 left Plan Surgical date September 07, 2019 in the OR with Dr. Soto for revision reconstruction of left breast with spring intern exchange for silicone implant that is between 14 to 15 cm likely in approximately 500to 600 cc, lowering the left IMF with AlloDerm and placement of 2 PROSPER drains as well as right mastopexy reduction with placement of small implant approximately 13 cm to help with projection and symmetryas well as bilateral fat grafting. Consent is signed. Orders are placed. Implant sheet and AlloDerm sheet are filled out. Tumescent solution will be needed day of surgery as well as revolve system. Patient is aware she will need to avoid public places for 1 week after surgery, she goes home the same date, 1 week worth of antibiotics 2 pills 3 times a day with a full glass of water for some food and to stay upright for 1 hour after, no showering or allowing dressings to get wet for the first week, sponge bathe only for necessities, no heavy lifting or strenuous activity, abdominal binder and surgical bra in place for a full week. She is aware that the princess and PROSPER drains typically come out at week 2. We reviewed how to strip the PROSPER drains 3-4 times a day as well as record the output. If questions or concerns should arise prior to day of surgery please do not hesitate to give us a call. Author: Yesy Reeves PA-C 08/27/2019 11:29 documented in this encounter Plan of Treatment Date Type Specialty Care Team Description 09/07/2019 Hospital Encounter Acute [facility], Short Procedure Hospital Tyshawn Simons DO [address] [place] [address] 09/07/2019 Surgery Acute Care [facility], left spring intern Hospital Tyshawn Simons DO exchange for [address] silicone implant, [place] [id number] alloderm pocket, PROSPER [phone] drains. right [phone] reduction with (Fax) silicone implant and b/l fat grafting 09/13/2019 Office Visit Plastic Surgery Yesy Reeves PA-C [address] [place] [address] Health Maintenance Due Date Last Done [...] of this encounter Implants Implanted Type Area Mold Maker Plastic Molds Device Shelf Model / Identifier Expiration Date Serial / Lot Alloderm, 8x16 Rtu Thick - [id number] Left: LIFECE [id number] 12/05/2019 [id number] / Implanted: Qty: 1 on 06/05/2018 by Tyshawn Gan DO at [facility] Breast / [id number] Tissue Radio Tester Left: 01/24/2022 [id number] / Implanted: Qty: 1 on 06/05/2018 by Tyshawn Gan DO at [facility] Breast [id number] / documented as of this encounter Results Not on filedocumented in this encounter Visit Diagnoses Diagnosis History of breast cancer in female Personal history of malignant neoplasm of breast documented in this encounter Guarantor Name Account Type Relation to Date of Phone Billing Patient Address Anitha Rocha Personal/Family 1965 [address] [phone] [place], [place] (Work) [id number] documented as of this encounter
[2019-10-07 12:38] LABS: ABS Eosinophils 0.1 10^3/ul (0-0.6); ABS Lymphocytes 0.8 10^3/ul (1.0-4.8); ABS Monocytes 0.5 10^3/ul (0-0.8); ABS Neutrophils 2.9 10^3/ul (1.5-7.7); Eosinophil % 1.4 %; Hematocrit 36 % (35-47); Hemoglobin 12.4 g/dL (12.0-16.0); Lymphocyte % 19.2 %; Mean Corpuscular HGB Conc 34 g/dL (31-36); Mean Corpuscular Hemoglobin 31 pg (27-31); Mean Corpuscular Volume 90 fL (80-97); Mean Platelet Volume 7.4 fL (7.4-10.4); Nucleated Red Blood Cells % 0.1; Platelet Count 252 10^3/uL (150-450); Red Blood Count 4.02 10^6 /uL (3.70-4.87); Red Cell Distribution Width 13 % (10-15); White Blood Count 4.2 10^3/uL (3.5-10.8)
[2019-10-07 12:48] LABS: INR 1.11 (0.82-1.09)
[2019-10-07 12:56] LABS: Troponin I 0.01 ng/mL (<0.03)
[2019-10-07 12:58] LABS: Albumin 4.1 g/dL (3.2-5.2); Albumin/Globulin Ratio 1.4 (1-3); BUN/Creatinine Ratio 12.7 (8-20); Calcium 9.8 mg/dL (8.6-10.3); EGFR African American 104.6 (>60); EGFR Non-African American 86.4 (>60); Potassium 3.7 mmol/L (3.5-5.0); Total Bilirubin 0.4 mg/dL (0.2-1.0); Total Protein 7.1 g/dL (6.4-8.9)
--- NOTE | 2019-10-07 13:39 | ED ---
HPI Chest Pain - HPI Summary HPI Summary: Patient is a 53 y/o F presenting to [facility] with chief complaint of midsternal and left anterior chest pain. Sx onset this morning when she awoke. She went to work but notes that her Sx persisted. Pain is characterized as sharp and is noted to be aggravated by deep breaths and movement. She states that she was feeling SOB secondary to taking shallow respirations. Patient claims to feel a fluttering sensation in her chest as well. She called her physician and was advised to come to ED for evaluation. The patient denies cough, fever, chills, diaphoresis, pain/swelling in her legs. She had reconstructive breast surgery around one month ago. Hx of breast cancer noted. She states that she had a mammogram this year and there were no concerning findings. Patient was recently checked by her breast surgeon and nothing concerning was noted either. FMHx of cardiac disease is noted but none of aneurysms or blood clots noted. The patient is a non-smoker. She is on tamoxifen and vitamin D supplement. Patient states that she does not need pain medications at this time. Erythema of eyes, sore throat, abdominal pain, N/V, dysuria, hematuria, rash, or dizziness are not reported. On triage, pain is rated 5/10 in severity. Home medications and allergies are reviewed. - History of Current Complaint Chief Complaint: EDChestPainROMI Time Seen by Provider: 10/07/19 13:12 Hx Obtained From: Patient Onset/Duration: Started Hours Ago Timing: Lasting Hours Current Severity: Moderate Pain Intensity: 5 Pain Scale Used: 0-10 Numeric Chest Pain Location: Mid Sternal, Left Anterior Character: Fluttering, Sharp/Stabbing Aggravating Factor(s): Movement, Deep Breaths Associated Signs and Symptoms: Positive: Chest Pain, Shortness of Breath, Palpitations - fluttering sensation in chest, Other: - Erythema of eyes, sore throat, abdominal pain, N/V, dysuria, hematuria, rash, or dizziness are not reported. Negative: Dizziness, Swelling, Fever, Chills, Nausea, Cough, Productive Cough, Nonproductive Cough, Abdominal Pain, Calf Pain/Swelling, Vomiting - Allergy/Home Medications Allergies/Adverse Reactions: Allergies Allergy/AdvReac Type Severity Reaction Status Date / Time No Known Allergies Allergy Verified 10/07/19 12:29 Home Medications: Home Medications Cholecalciferol TAB* [Vitamin D TAB*] 1,000 unit PO DAILY 10/07/19 [History Confirmed 10/07/19] Tamoxifen TAB* [Nolvadex*] 20 mg PO DAILY 10/07/19 [History Confirmed 10/07/19] PMH/Surg Hx/FS Hx/Imm Hx Cardiovascular History: Denies: Other Cardiovascular Problems/Disorders Respiratory History: Denies: Other Respiratory Problems/Disorders GI History: Denies: Other GI Disorders History: Reports: Hx Kidney Stones - current kidney stones Musculoskeletal History: Denies: Hx Osteoporosis Sensory History: Reports: Hx Contacts or Glasses Denies: Hx Hearing Aid Opthamlomology History: Reports: Hx Contacts or Glasses Neurological History: Denies: Other Neuro Impairments/Disorders - Cancer History Cancer Type, Location and Year: breast 2018 Hx Chemotherapy: Yes Hx Radiation Therapy: Yes - Surgical History Surgery Procedure, Year, and Place: mastectomy 06/05/18 left breast, [facility] Hx Anesthesia Reactions: Yes - nausea Infectious Disease History: No Infectious Disease History: Denies: Traveled Outside the [place] in Last 30 Days - Family History Known Family History: Positive: Cardiac Disease - Social History Alcohol Use: Occasionally Alcohol Amount: 4 per week Substance Use Type: Reports: None Smoking Status (MU): Never Smoked Tobacco Review of Systems Negative: Fever, Chills Negative: Erythema Negative: Sore Throat Positive: Palpitations - fluttering in chest , Chest Pain Positive: Shortness Of Breath. Negative: Cough Negative: Abdominal Pain, Vomiting, Nausea Negative: discharge, hematuria Negative: Myalgia, Edema Negative: Rash Neurological: Other - negative - dizziness All Other Systems Reviewed And Are Negative: Yes Physical Exam - Summary Physical Exam Summary: Constitutional: Well-developed, Well-nourished, Alert. (-) Distressed Skin: AMANDA Cruz chaperoned exam. At left breast, there is a well-healing incision scar, hyper-pigmentation of the left breast. No erythema or fluctuance noted. HENT: Normocephalic; Atraumatic Eyes: Conjunctiva normal Neck: Musculoskeletal ROM normal neck. (-) JVD, (-) Stridor, (-) Tracheal deviation Cardio: Rhythm regular, rate normal, Heart sounds normal; Intact distal pulses; The pedal pulses are 2+ and symmetric. Radial pulses are 2+ and symmetric. (-) Murmur Pulmonary/Chest wall: Effort normal. (-) Respiratory distress, (-) Wheezes, (-) Rales Abd: Soft, (-) tenderness, (-) Distension, (-) Guarding, (-) Rebound Musculoskeletal: (-) Edema Lymph: (-) Cervical adenopathy Neuro: Alert, Oriented x3 Psych: Mood and affect Normal Triage Information Reviewed: Yes Vital Signs On Initial Exam: Initial Vitals Temp Pulse Resp BP Pulse Ox 98.9 F 101 16 141/92 98 10/07/19 12:15 10/07/19 12:15 10/07/19 12:15 10/07/19 12:15 10/07/19 12:15 Vital Signs Reviewed: Yes Procedures - Sedation Patient Received Moderate/Deep Sedation with Procedure: No Diagnostics - Vital Signs Vital Signs Temp Pulse Resp BP Pulse Ox 10/07/19 12:15 98.9 F 101 16 141/92 98 - Laboratory Lab Results: Lab Results 10/07/19 10/07/19 10/07/19 Range/Units 12:25 12:25 12:25 WBC 4.2 (3.5-10.8) 10^3/uL RBC 4.02 (3.70-4.87) 10^6 /uL Hgb 12.4 (12.0-16.0) g/dL Hct 36 (35-47) % MCV 90 (80-97) fL MCH 31 (27-31) pg MCHC 34 (31-36) g/dL RDW 13 (10-15) % Plt Count 252 (150-450) 10^3/uL MPV 7.4 (7.4-10.4) fL Neut % (Auto) 68.0 % Lymph % (Auto) 19.2 % [place] % (Auto) 10.7 % Eos % (Auto) 1.4 % Baso % (Auto) 0.7 % Absolute Neuts (auto) 2.9 (1.5-7.7) 10^3/ul Absolute Lymphs (auto) 0.8 L (1.0-4.8) 10^3/ul Absolute Monos (auto) 0.5 (0-0.8) 10^3/ul Absolute Eos (auto) 0.1 (0-0.6) 10^3/ul Absolute Basos (auto) 0.0 (0-0.2) 10^3/ul Absolute Nucleated RBC 0.0 10^3/ul Nucleated RBC % 0.1 INR (Anticoag Therapy) 1.11 H (0.82-1.09) Sodium 140 (135-145) mmol/L Potassium 3.7 (3.5-5.0) mmol/L Chloride 106 (101-111) mmol/L Carbon Dioxide 27 (22-32) mmol/L Anion Gap 7 (2-11) mmol/L BUN 9 (6-24) mg/dL Creatinine 0.71 (0.51-0.95) mg/dL Est GFR ( Amer) 104.6 (>60) Est GFR (Non-Af Amer) 86.4 (>60) BUN/Creatinine Ratio 12.7 (8-20) Glucose 98 (70-100) mg/dL Calcium 9.8 (8.6-10.3) mg/dL Total Bilirubin 0.40 (0.2-1.0) mg/dL AST 14 (13-39) U/L ALT 11 (7-52) U/L Alkaline Phosphatase 61 (34-104) U/L Troponin I 0.01 (<0.03) ng/mL Total Protein 7.1 (6.4-8.9) g/dL Albumin 4.1 (3.2-5.2) g/dL Globulin 3.0 (2-4) g/dL Albumin/Globulin Ratio 1.4 (1-3) Result Diagrams: 10/07/19 12:25 10/07/19 12:25 Lab Statement: Any lab studies that have been ordered have been reviewed, and results considered in the medical decision making process. - CT CTA CHEST/THORAX CT Interpretation Completed By: Radiologist Summary of CT Findings: CTA CHEST/THORAX IMPRESSION: 1. NO PULMONARY ARTERIAL FILLING DEFECT TO SUGGEST PULMONARY EMBOLISM. 2. RIGHT NEPHROLITHIASIS. THIS REPORT WAS REVIEWED BY ED PHYSICIAN. - EKG 1515 Cardiac Rate: NL - rate of 98 BPM EKG Rhythm: Sinus Rhythm Summary of EKG Findings: EKG showed NSR with rate of 98 BPM, no STEMI. ED physician has reviewed and interpreted this EKG. Chest Pain Course/Dx - Course Course Of Treatment: Patient is a 53 y/o F presenting to [facility] with chief complaint of midsternal and left anterior chest pain. Sx onset this morning when she awoke. She went to work but notes that her Sx persisted. Pain is characterized as sharp and is noted to be aggravated by deep breaths. She states that she was feeling SOB secondary to taking shallow respirations. Patient claims to feel a fluttering sensation in her chest as well. She called her physician and was advised to come to ED for evaluation. The patient denies cough, fever, chills, diaphoresis, pain/swelling in her legs. She had reconstructive breast surgery around one month ago. Hx of breast cancer noted. She states that she had a mammogram this year and there were no concerning findings. Patient was recently checked by her breast surgeon and nothing concerning was noted either. At left breast, there is a well-healing incision scar, hyper-pigmentation of the left breast. No erythema or fluctuance noted. EKG showed NSR with rate of 98 BPM, no STEMI. Bloodwork was obtained. Trop was negative. Other bloodwork was within normal limits with exception of INR 1.11 and absolute lymps 0.8. CTA CHEST/THORAX IMPRESSION: 1. NO PULMONARY ARTERIAL FILLING DEFECT TO SUGGEST PULMONARY EMBOLISM. 2. RIGHT NEPHROLITHIASIS. Second troponin was negative as well. Patient was given 30 mg IV Toradol. Patient reported that CP is improving. At this time, she notes that she shovelled two days ago. All pain can be reproduced with movement and deep breaths. There is no anginal component to her chest pain. The patient has no cardiac risk factors. Differential is musculoskeletal CP vs post-op pain/scar tissue. Patient to follow up with PCP and her surgeon. - Chest Pain Differential Diagnosis/HQI/PQRI: Other: - musculoskeletal CP vs post-op pain/ scar tissue - Diagnoses Provider Diagnoses: Chest wall pain Discharge ED - Sign-Out/Discharge Documenting (check all that apply): Patient Departure - discharge - Discharge Plan Condition: Stable Disposition: HOME Patient Education Materials: Chest Wall Pain (ED) Referrals: [facility] [Outside] - 3 Days Additional Instructions: PLEASE FOLLOW UP WITH YOUR PRIMARY CARE PHYSICIAN WITHIN THREE DAYS. PLEASE FOLLOW UP WITH YOUR SURGEON IN TWO WEEKS TIME. RETURN TO ED FOR ANY NEW OR CONCERNING SYMPTOMS. - Attestation Statements Document Initiated by Scribe: Yes Documenting Scribe: GLYNN FRYE Provider For Whom Scribe is Documenting (Include Credential): MD Tami RAYAibe Attestation: GLYNN Devries, scribed for DEA RIVERA MD on 10/07/19 at 1609. Status of Scribe Document: Ready
[2019-10-07] MEDS ORDERED: Iohexol 350* (CONTRAST) 500 ML MDV IV ONE (13:42)
[2019-10-07] MEDS ORDERED: Ketorolac INJ* 30 MG/ML 1 ML VIAL IV PUSH ONE (15:18)
[2019-10-07 16:25] VITALS: BP 119/63
== END 2019-10-07 16:23 | disposition home or self-care (01) ==
LOC: ED 12:10
DX: R07.89 Other chest pain (principal); R06.02 Shortness of breath; R00.2 Palpitations; Z85.3 Personal history of malignant neoplasm of breast; N20.0 Calculus of kidney; Z79.899 Other long term (current) drug therapy
CPT/HCPCS: 36415; 71275; 80053; 84484; 85025; 85610; 93005; 96374; 99282; J1885; Q9967